=== PATIENT | male | born 1990 | race Caucasian/White ===

== ENCOUNTER 2022-07-16 05:55 | Emergency (ER) | payer OTHER ==
[~2022-07-16] VITALS: Ht 182.9 cm; Wt 149.7 kg
[2022-07-16 06:10] VITALS: BP 138/93
[2022-07-16] MEDS ORDERED: DOXY100 PO (06:19)
== END 2022-07-16 07:14 | disposition home or self-care (01) ==
LOC: ER 05:55
DX: L03.115 Cellulitis of right lower limb (principal)
CPT/HCPCS: 99283

== ENCOUNTER 2022-08-17 10:59 | Emergency (ER) | payer OTHER ==
[~2022-08-17] VITALS: Ht 185.4 cm; Wt 143.8 kg
[~2022-08-17 10:59] MED LIST: DOXY100 PO
[2022-08-17 11:18] VITALS: BP 145/92
[2022-08-17] MEDS ORDERED: MONDOXYNE NL100 MG PO (11:24)
== END 2022-08-17 11:20 | disposition home or self-care (01) ==
LOC: ER 10:59
DX: L08.9 Local infection of the skin and subcutaneous tissue, unspecified (principal); Z88.2 Allergy status to sulfonamides
CPT/HCPCS: 99282

== ENCOUNTER 2022-10-13 19:33 | Emergency (ER) | payer OTHER ==
[~2022-10-13] VITALS: Ht 185.4 cm; Wt 142.9 kg
[~2022-10-13 19:33] MED LIST changes: +MONDOXYNE NL100 MG PO
[2022-10-13 20:11] VITALS: BP 156/98
[2022-10-13] MEDS ORDERED: Clindamycin HC150 MG PO (20:51)
== END 2022-10-13 21:09 | disposition home or self-care (01) ==
LOC: ER 19:33
DX: L03.90 Cellulitis, unspecified (principal); Z88.2 Allergy status to sulfonamides
CPT/HCPCS: 87070; 87075; 87077; 87147; 87186; 87205; 99282

== ENCOUNTER 2023-04-06 13:19 | Emergency (ER) | payer OTHER ==
[~2023-04-06] VITALS: Ht 185.4 cm; Wt 158.8 kg
[~2023-04-06 13:19] MED LIST changes: +Clindamycin HC150 MG PO
[2023-04-06 14:17] VITALS: BP 169/98
[2023-04-06] MEDS ORDERED: CEPH500 PO (14:22)
== END 2023-04-06 14:28 | disposition home or self-care (01) ==
LOC: ER 13:19
DX: L60.0 Ingrowing nail (principal); L08.9 Local infection of the skin and subcutaneous tissue, unspecified; Z86.14 Personal history of Methicillin resistant Staphylococcus aureus infection; Z88.2 Allergy status to sulfonamides
CPT/HCPCS: 99283